=== PATIENT | female | born 1975 | race Two or more races ===

== ENCOUNTER 2021-03-16 17:48 | Emergency (ER) | payer OTHER ==
[~2021-03-16] VITALS: Ht 162.6 cm; Wt 96.6 kg
[2021-03-16 19:18] LABS: Basophils # (auto) 0 10 ^3/uL (0-0.2); Basophils % (auto) 0.4 % (0.0-2.0); Eosinophils # (auto) 0.1 10 ^3/uL (0-0.8); Eosinophils % (auto) 0.7 % (0.0-7.0); Hemoglobin 14.1 g/dL (12.2-16.2); Lymphocytes # (auto) 3.2 10 ^3/uL (0.4-5.4); Lymphocytes % (auto) 30.8 % (10.0-50.0); Mean Corpuscular Hemoglobin 31.3 pg (28.0-32.0); Mean Corpuscular Hgb Conc. 34.5 g/dL (32.0-36.0); Mean Corpuscular Volume 90.8 fL (80.0-100.0); Monocytes # (auto) 0.6 10 ^3/uL (0-1.3); Monocytes % (auto) 5.7 % (0.0-12.0); Neutrophils # (auto) 6.4 10 ^3/uL (1.6-8.6); Neutrophils % (auto) 62.4 % (37.0-80.0); Red Blood Cells 4.51 10^6/uL (4.0-5.20); Red Cell Distribution Width 13.4 % (11.8-14.3); White Blood Cell 10.3 10^3/uL (4.4-10.8)
[2021-03-16 19:34] LABS: Chloride 107 mmol/L (98-107); Potassium 3.9 mmol/L (3.5-5.1); Sodium 139 mmol/L (136-145)
[2021-03-16 19:37] LABS: Alanine Aminotransferase 22 U/L (13-56); Albumin 3.6 g/dL (3.4-5.0); Anion Gap 5 (5-15); Aspartate Aminotransferase 16 U/L (15-37); BUN/Creatinine Ratio 8.9; Blood Urea Nitrogen 9 mg/dL (7-18); Carbon Dioxide 27 mmol/L (21-32); GFR African American 76 mL/min; GFR Non-African American 62 mL/min; Glucose 106 mg/dL (74-106)
[2021-03-16 19:42] LABS: Alkaline Phosphatase 72 U/L (45-117); Bilirubin, Total 0.3 mg/dL (0.2-1.0); Total Protein 7.6 g/dL (6.4-8.2)
[2021-03-16 20:58] VITALS: BP 118/64
== END 2021-03-16 22:31 | disposition home or self-care (01) ==
LOC: ER 17:50
DX: J06.9 Acute upper respiratory infection, unspecified (principal); Z20.822 Contact with and (suspected) exposure to COVID-19
CPT/HCPCS: 36415; 71045; 80053; 84484; 85025; 87426

== ENCOUNTER 2021-10-11 17:22 | Emergency (ER) | payer OTHER ==
[~2021-10-11] VITALS: Ht 162.6 cm; Wt 82.6 kg
[2021-10-11 17:44] VITALS: BP 121/52
[2021-10-11] MEDS ORDERED: AZIT500T66 PO (18:05)
[2021-10-11] MEDS ORDERED: BENZ100C19 PO (18:05)
[2021-10-11] MEDS ORDERED: ALBU108A5 IN (18:05)
== END 2021-10-11 18:12 | disposition home or self-care (01) ==
LOC: ER 17:22
DX: J20.9 Acute bronchitis, unspecified (principal); Z90.49 Acquired absence of other specified parts of digestive tract; Z90.710 Acquired absence of both cervix and uterus
CPT/HCPCS: 71046

== ENCOUNTER 2021-11-30 07:21 | Emergency (ER) | payer OTHER ==
[~2021-11-30] VITALS: Ht 162.6 cm; Wt 80.7 kg
[~2021-11-30 07:21] MED LIST: ALBU108A5 IN; AZIT500T66 PO; BENZ100C19 PO
[2021-11-30 07:22] VITALS: BP 119/69
[2021-11-30] MEDS ORDERED: cefTRIAXone SOD 1,000 MG VL IM ONE (08:30)
[2021-11-30] MEDS ORDERED: LIDOCAINE 1% HCL (LOCAL ANESTH.) INJ 20ML MDV IJ ONE (08:30)
[2021-11-30] MEDS ORDERED: LIDOCAINE 1%HCL (LOCAL ANESTH) 10 ML MDV ONE (08:31)
[2021-11-30] MEDS ORDERED: IBUP600T27 PO (08:46)
[2021-11-30] MEDS ORDERED: AZIT500T66 PO (08:46)
== END 2021-11-30 08:53 | disposition home or self-care (01) ==
LOC: ER 07:21
DX: J03.90 Acute tonsillitis, unspecified (principal); E78.5 Hyperlipidemia, unspecified; Z90.49 Acquired absence of other specified parts of digestive tract; Z90.710 Acquired absence of both cervix and uterus; Z88.0 Allergy status to penicillin
CPT/HCPCS: 96372; 99283; J0696; J2001

== ENCOUNTER 2024-07-27 08:10 | Emergency (ER) | payer OTHER ==
[~2024-07-27] VITALS: Ht 162.6 cm; Wt 90.6 kg
[~2024-07-27 08:10] MED LIST changes: +IBUP-1454 PO
[2024-07-27 08:52] LABS: COVID19 ANTIGEN SOFIA FIA NEGATIVE (NEGATIVE); Rapid Influenza A Negative (Negative); Rapid Influenza B Negative (Negative)
[2024-07-27 09:02] VITALS: BP 130/60; PULSE 89; RESP 18; TEMP 97.7; O2SAT 97
[2024-07-27] MEDS ORDERED: ACET500T58 PO (09:16)
[2024-07-27] MEDS ORDERED: CETI5TAB6 PO (09:16)
[2024-07-27] MEDS ORDERED: CEFU500T43 PO (09:16)
--- NOTE | 2024-07-27 09:16 | ED.PDOC ---
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 has not tried otc medications Denies hearing loss Denies persistent ringing in the ear Denies fever chills night sweats unintentional weight loss Denies nausea vomiting severe headache or recent vision changes Chief Complaint: Flu like Time Seen by MD: 08:19 Reviewed Notes: Nurses Notes, Medications, Allergies Information Source: Patient Past Medical History PAST MEDICAL HISTORY: High Lipids Surgical History: Cholecystectomy, Hysterectomy 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: No Pertinent 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 History Family History Family History: Reviewed,noncontributory to illness Social History Smoker: Other Alcohol: Denies ETOH Use Drugs: Denies Drug Use Lives In: Home All Other Systems: Reviewed and Negative (Per HPI) Physical Exam General Appearance: No Apparent Distress, Normal HEENT: Normal ENT Inspection, Pharynx Normal, TM Abnormal (L) (TM intact but erythematous and bulging TM) Neck: Full Range of Motion, Non-Tender, Normal, Normal Inspection Respiratory: Chest Non-Tender, Lungs Clear, No Accessory Muscle Use, No Respiratory Distress, Normal Breath Sounds Cardiovascular: No Edema, No JVD, No Murmur, No Gallop, Normal Peripheral Pulses, Regular Rate/Rhythm Breast Exam: Deferred Gastrointestinal: No Organomegaly, Non Tender, No Pulsatile Mass, Normal Bowel Sounds, Soft Genitalia: Deferred Pelvic: Deferred Rectal: Deferred Extremities: No calf tenderness, Normal capillary refill, Normal inspection, Normal range of motion, Non-tender, No pedal edema Musculoskeletal : Apperance: Normal Neurologic: Alert, nuclear reactor 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 Was a procedure done?: No Fever Differential Dx Differential Diagnosis: Viral Syndrome, Other X-Ray, Labs, Meds, VS Vital Signs Date Time Temp Pulse Resp B/P (MAP) Pulse Ox O2 Delivery O2 Flow Rate FiO2 07/27/24 09:02 97.7 89 18 130/60 (83) 97 97.7 07/27/24 09:02 89 18 97 Room Air 07/27/24 08:20 97.7 89 18 130/60 (83) 97 Lab Test 07/27/24 08:20 Range/Units Influenza Type A Antigen Negative Negative Influenza Type B Antigen Negative Negative SARS-CoV-2 Antigen (Rapid) Negative NEGATIVE X-Ray, Labs, Meds, VS Comment Prescribed p.o. antibiotics for presentation of symptoms Complete course of antibiotic therapy even if symptoms improve or resolve. There should be no leftover antibiotics as this can lead to antibiotic resistant bacteria and even worse infection. Patient verbalized understanding. Potential side effects discussed with patient including abdominal pain, nausea, diarrhea. Patient is stable for discharge at this time. External notes reviewed. Test results and diagnostic imaging interpreted. All diagnostic findings, discharge care, education and instructions provided Follow-up with PCP in 2 to 3 days Patient verbalized understanding and agreed to treatment plan Vital signs stable, afebrile, no acute distress noted Patient ambulatory with strong steady gait Advised to return precautions for any new or worsening symptoms, return to ER immediately for re-evaluation Patient is aware that the purpose of this visit was for an acute medical yasmine rgency requiring emergent stabilization. Chronic conditions, including malignancies have not been ruled out. Patient is instructed to follow up with PCP as directed and discharge instructions for continued care and workup. If unable to arrange follow-up, patient is to return to the emergency department for reassessment. Patient (parent or legal guardian if applicable) was given verbal and written discharge instructions and acknowledges understanding. Time of 1ST Reevaluation: 09:00 Reevaluation 1ST: Improved Patient Education/Counseling: Diagnosis, Treatment Family Education/Counseling: Diagnosis, Treatment Departure 1 Departure Time of Disposition: 09:10 Impression: Primary Impression: AOM (acute otitis media) Qualified Codes: H66.002 - Acute suppurative otitis media without spontaneous rupture of ear drum, left ear Disposition: 01 HOME / SELF CARE / HOMELESS Condition: Stable e-Prescriptions Acetaminophen (Acetaminophen) 500 Mg Tab 500 MG PO Q4HP PRN for 10 Days, #50 TAB 0 Refills Prov: BINTA KRAMER [employer]PER[employer]OR 07/27/24 Cetirizine Hcl (Cetirizine Hcl) 5 Mg Tab 10 MG PO DAILY for 30 Days, #60 TAB 0 Refills Prov: BINTA KRAMER NP 07/27/24 Cefuroxime Axetil (Cefuroxime Axetil) 500 Mg Tab 1 TAB PO BID for 10 Days, #20 TAB 0 Refills Prov: BINTA KRAMER NP 07/27/24 Critical Care Note Critical Care Time?: No Stability Stability form required: No Heart Score Heart Score: Heart Score Response (Comments) Value History N/A 0 EKG N/A 0 Age N/A 0 Risk Factors N/A 0 Troponin N/A 0 Total 0 BINTA KRAMER NP Jul 27, 2024 09:16
== END 2024-07-27 09:23 | disposition home or self-care (01) ==
LOC: ER 08:10
DX: H66.93 Otitis media, unspecified, bilateral (principal); E78.5 Hyperlipidemia, unspecified; Z90.49 Acquired absence of other specified parts of digestive tract; Z90.710 Acquired absence of both cervix and uterus; Z20.822 Contact with and (suspected) exposure to COVID-19
CPT/HCPCS: 36415; 87426; 87804